=== PATIENT | female | born 1930 | race Caucasian/White ===

== ENCOUNTER 2017-07-13 13:36 | Outpatient (CLI) | payer MEDICARE ==
--- NOTE | 2017-07-13 17:56 | RAD ---
RADIOGRAPH LUMBAR SPINE 2 VIEWS: DATE: 07-13-17 HISTORY: 87-year-old female with lumbar spinal stenosis, and recent low back injury lifting heavy objec t in April 2017. COMPARISON: Two view study of 06-12-17. FINDINGS: There are five lumbar type vertebrae. There is severe loss of height, approximately 75% overall, of the L1 vertebral body, causing gibbus. There is bony retropulsion of the posterior/superior endplate . The collapse is most severe on the right side resulting in focal levoscoliosis with apex of curvat ure at L1. There are asymmetrically severe left sided degenerative facet changes along the concavity of the counter-curvature at L3-4, L4-5, and L5-S1. There is diffuse osteopenia. The rest of the celina tebral body heights are maintained. There is severe degenerative facet disease resulting in grade I anterolisthesis of L4 on L5. Moderate disc space narrowing at L4-5. No interval change overall since the prior study. IMPRESSION: 1. Nonacute burst fracture of L1 with severe loss of height and associated gibbus and levoscoliosis. 2. Grade I spondylolisthesis at L4-5 due to facet osteoarthrosis. 3. Severe osteoporosis/osteopenia. 4. No interval change since 06-12-17 JN POS: [facility]
== END 2017-07-13 13:37 | disposition home or self-care (01) ==
LOC: TBSIIMAG 13:36
PROVIDERS: ATTEND Neurological Surgery
DX: M48.56XA Collapsed vertebra, not elsewhere classified, lumbar region, initial encounter for fracture (principal); M43.16 Spondylolisthesis, lumbar region; M47.816 Spondylosis without myelopathy or radiculopathy, lumbar region
CPT/HCPCS: 72100

== ENCOUNTER 2020-04-18 14:11 | Outpatient (CLI) | payer MEDICARE ==
--- NOTE | 2020-04-18 15:28 | ULT ---
BILATERAL CAROTID DUPLEX ULTRASOUND: HISTORY: Left carotid bruit TECHNIQUE: Grayscale, color-flow and spectral Doppler ultrasound imaging of the extracranial carotid artery syst ems and vertebral arteries was performed bilaterally. FINDINGS: No large amount of echogenic plaque is seen involving the common carotid or internal carotid arteries . The peak systolic velocity in the right ICA measures 71.4 cm/s. The peak systolic velocity in the ri ght CCA measures 71.4 cm/s. The peak systolic velocity in the left ICA measures 89.5 cm/s. The peak systolic velocity in the l eft CCA measures 77.7 cm/s. The right IC/CC ratio is1.0. The left IC/CC ratio is 1.5. Vertebral flow: antegrade, bilaterally. IMPRESSION: No hemodynamically significant stenosis of Both ICAs.
== END 2020-04-18 14:12 | disposition home or self-care (01) ==
LOC: BICULT 14:11
PROVIDERS: ATTEND Family Medicine
DX: R09.89 Other specified symptoms and signs involving the circulatory and respiratory systems (principal)
CPT/HCPCS: 93880

== ENCOUNTER 2020-11-19 15:44 | Emergency (ER) | payer MEDICARE ==
[2020-11-19] MEDS ORDERED: Boostrix 0.5 ML (Tdap) VIAL ONE (16:43)
--- NOTE | 2020-11-19 16:48 | CT ---
CT HEAD WITHOUT IV CONTRAST COMPARISON: 09/11/2020 HISTORY: Injury after fall. Patient slipped and fell and hit head on ground. TECHNIQUE: Axial CT imaging at 5 mm intervals from vertex through skull base without contrast FINDINGS: There is decreased attenuation in the periventricular white matter which is nonspecific but likely re flective of chronic small vessel ischemic changes. There is mild cerebral volume loss. Ventricular system is prominent in size and out of proportion to the degree of sulcal atrophy, but this is likely related to greater central cerebral atrophy. This is stable compared to prior exam and also similar to study in 2016. There is no evidence of an acute infarction, hemorrhage, mass effect, or midline shift. Skull base has a normal CT appearance. Visualized paranasal sinuses are clear. Osseous structures appear intact. No depressed calvarial fracture is seen. There is mild scalp soft t issue swelling right anterior frontal region. IMPRESSION: 1. No acute intracranial abnormality demonstrated. 2. Chronic small vessel ischemic changes and cerebral volume loss. 3. Right anterior frontal scalp hematoma.
--- NOTE | 2020-11-19 17:02 | CT ---
EXAM: CT cervical spine PROVIDED CLINICAL HISTORY: Injury after fall. Patient slipped and fell and hit head on ground. TECHNIQUE: Contiguous axial CT images are obtained through the cervical spine from the skull base to the T1-2 le fran. Sagittal and coronal reformatted images are provided. COMPARISON: 09/11/2020 FINDINGS: There is evidence of a type I odontoid fracture which involves the most distal and posterior aspect o f the odontoid. There is only trace separation of fracture fragments. There is no displacement of the fracture fragments. No additional fracture is seen involving the cervical spine. As noted on the prior examination, there is slight anterolisthesis of C4 on C5 and retrolisthesis of C5 on C6 with trace anterolisthesis of C7 on T1 likely on a degenerative basis. Multilevel degenerative changes are again seen involving the cervical spine with disc osteophyte comp lexes and facet hypertrophic changes at multiple levels unchanged from prior exam. No prevertebral soft tissue swelling apparent. Visualized lung apices appear clear without pneumothorax. No other interval change. IMPRESSION: 1. Nondisplaced but slightly type I odontoid fracture. 2. Above findings discussed with Linda Lunsford NP in the emergency department on 11/19/2020 at [address]
== END 2020-11-19 19:34 | disposition home or self-care (01) ==
LOC: ERS 15:44
DX: S12.112A Nondisplaced Type II dens fracture, initial encounter for closed fracture (principal); S01.81XA Laceration without foreign body of other part of head, initial encounter; S80.01XA Contusion of right knee, initial encounter; S80.212A Abrasion, left knee, initial encounter; S50.311A Abrasion of right elbow, initial encounter; M54.2 Cervicalgia; F03.90 Unspecified dementia, unspecified severity, without behavioral disturbance, psychotic disturbance, mood disturbance, and anxiety; Z23 Encounter for immunization; E03.9 Hypothyroidism, unspecified; Z79.899 Other long term (current) drug therapy; W01.198A Fall on same level from slipping, tripping and stumbling with subsequent striking against other object, initial encounter
CPT/HCPCS: 12011; 70450; 72125; 90471; 90715

== ENCOUNTER 2020-12-29 06:42 | Emergency (ER) | payer MEDICARE ==
[2020-12-29 08:14] LABS: #Eosinphils 0.2 thou/uL (0.0-0.7); #Lymphocytes 2.5 thou/uL (1.20-3.40); #Monocytes 0.7 thou/uL (0.11-0.59); #Neutrophils 5.7 thou/uL (1.40-6.50); %Basophils 0.5 % (0.0-1.0); %Eosinophils 2.2 % (0.0-10.0); %Lymphocytes 27.4 % (21.0-51.0); %Monocytes 7.1 % (0.0-10.0); %Neutrophils 62.7 % (42.0-75.0); Hemoglobin 13.9 g/dL (12.0-16.0); Mean Corpuscular HGB CONC 31.4 g/dL (32.0-36.0); Mean Corpuscular Hemoglobin 32.2 pg (27.0-31.0); Mean Platelet Volume 9.2 fL (7.4-10.4); Platelet Count 135 thou/uL (130-400); White Blood Cell (WBC) Count 9.1 thou/uL (4.8-10.8)
[2020-12-29 08:31] LABS: ALT (SGPT) 7 U/L (8-55); AST (SGOT) 13 U/L (5-34); Albumin 3.3 g/dL (3.4-4.8); Alkaline Phosphatase 81 U/L (40-110); Anion Gap 13 mmol/L (10-20); BUN (Urea Nitrogen) 22 mg/dL (9.8-20.1); Bilirubin, Total 0.4 mg/dL (0.2-1.2); Calc. Creatinine Clearance 0 mL/min (70-130); Calcium 8.8 mg/dL (7.8-10.44); Carbon Dioxide 29 mmol/L (23-31); Chloride 107 mmol/L (98-107); Globulin 2.6 g/dL (2.4-3.5); Glucose 94 mg/dL (83-110); Potassium 4.6 mmol/L (3.5-5.1); Protein, Total 5.9 g/dL (5.8-8.1); Sodium 144 mmol/L (136-145)
[2020-12-29 10:31] LABS: Bacteria/HPF 4+ HPF (None Seen); Bilirubin Negative (Negative); Blood, Urine 1+ (Negative); Clarity Turbid (Clear); Glucose, Urine (Dipstick) Normal (Negative); Ketone, Urine Negative (Negative); Leukocyte 500 Leu/uL (Negative); Nitrite 1+ (Negative); Protein, Urine (Dipstick) 20 mg/dL (Neg-Trace); RBC/HPF 21-50 HPF (0-3); Specific Gravity, Urine 1.009 (1.002-1.036); Squamous Epithelial 0-3 HPF (0-3); Urobilinogen Normal mg/dL (Less than 2); WBC/HPF Greater than 50 HPF (0-3)
[2020-12-29] MEDS ORDERED: cefTRIAXone\\ROCEPHIN 1 GM VIAL ONE (11:36)
== END 2020-12-29 12:27 ==
LOC: ERS 06:42
DX: S00.83XA Contusion of other part of head, initial encounter (principal); M25.551 Pain in right hip; N30.00 Acute cystitis without hematuria; E03.9 Hypothyroidism, unspecified; I50.9 Heart failure, unspecified; F03.90 Unspecified dementia, unspecified severity, without behavioral disturbance, psychotic disturbance, mood disturbance, and anxiety; W01.0XXA Fall on same level from slipping, tripping and stumbling without subsequent striking against object, initial encounter; Y92.129 Unspecified place in nursing home as the place of occurrence of the external cause; R29.6 Repeated falls
CPT/HCPCS: 51701; 70450; 71045; 72125; 72170; 80053; 81003; 81015; 85025; 87077; 87086; 87186; 93005; 96365; J0696

== ENCOUNTER 2021-01-09 18:57 | Emergency (ER) | payer MEDICARE | END 2021-01-09 22:49 | LOC: ERS 18:57 | DX: S00.93XA Contusion of unspecified part of head, initial encounter (principal); E03.9 Hypothyroidism, unspecified; I50.9 Heart failure, unspecified; Z79.899 Other long term (current) drug therapy; W22.8XXA Striking against or struck by other objects, initial encounter | CPT/HCPCS: 70450; 70486; 72125; 72131; 72170 ==

== ENCOUNTER 2021-02-09 13:53 | Inpatient (IN) | payer MEDICARE ==
[2021-02-09 14:54] LABS: Hemoglobin 14.2 g/dL (12.0-16.0); Mean Corpuscular HGB CONC 32.7 g/dL (32.0-36.0); RBC Distribution Width 12.6 % (11.5-14.5); White Blood Cell (WBC) Count 14.3 thou/uL (4.8-10.8)
[2021-02-09 15:14] LABS: ALT (SGPT) 8 U/L (8-55); AST (SGOT) 10 U/L (5-34); Albumin 3.4 g/dL (3.4-4.8); Alkaline Phosphatase 76 U/L (40-110); Anion Gap 13 mmol/L (10-20); BUN (Urea Nitrogen) 24 mg/dL (9.8-20.1); Bilirubin, Total 0.8 mg/dL (0.2-1.2); CK (CPK) 45 U/L (29-168); Calc. Creatinine Clearance 0 mL/min (70-130); Carbon Dioxide 30 mmol/L (23-31); Chloride 101 mmol/L (98-107); Globulin 2.7 g/dL (2.4-3.5); Glucose 120 mg/dL (83-110); Potassium 3.9 mmol/L (3.5-5.1); Protein, Total 6.1 g/dL (5.8-8.1); Sodium 140 mmol/L (136-145)
[2021-02-09 15:18] LABS: Band 15 % (5-11); Lymphocytes 16 % (21-51); MDiff Complete? YES; Mean Platelet Volume 9.2 fL (7.4-10.4); Monocytes 6 % (0-10); Neutrophil 63 % (42-75); Platelet Count 108 thou/uL (130-400)
[2021-02-09] MEDS ORDERED: Cefepime 2 GM VIAL ONE (15:43)
[2021-02-09 15:53] LABS: Bacteria/HPF 4+ HPF (None Seen); Bilirubin Negative (Negative); Blood, Urine Trace (Negative); Clarity Cloudy (Clear); Glucose, Urine (Dipstick) Normal (Negative); Ketone, Urine Negative (Negative); Leukocyte 500 Leu/uL (Negative); Nitrite Negative (Negative); Protein, Urine (Dipstick) 30 mg/dL (Neg-Trace); Specific Gravity, Urine 1.017 (1.002-1.036); Squamous Epithelial 0-3 HPF (0-3); Urobilinogen Normal mg/dL (Less than 2); WBC/HPF Greater than 50 HPF (0-3); pH, Urine 7.5 (5.0-9.0)
[2021-02-09] MEDS ORDERED: Vancomycin 1 GM/200 ML BAG ONE (16:11)
[2021-02-09] MEDS ORDERED: Senokot S 8.6-50 MG TAB PO PRN (17:02)
[2021-02-09] MEDS: Famotidine/PF 20 mg/2ml Vial SLOW IVP SCH ×2 (21:00→21:10)
[2021-02-09] MEDS: traZODone HCl 50 MG TAB PO PRN (21:00)
[2021-02-09 23:56] LABS: SARS-CoV-2 PCR by NAA Not Detected (NotDetected)
[2021-02-10 06:04] LABS: #Basophils 0.1 thou/uL (0.0-0.2); #Eosinphils 0.1 thou/uL (0.0-0.7); #Lymphocytes 2.1 thou/uL (1.20-3.40); #Monocytes 0.9 thou/uL (0.11-0.59); #Neutrophils 10.1 thou/uL (1.40-6.50); %Basophils 0.5 % (0.0-1.0); %Eosinophils 0.4 % (0.0-10.0); %Lymphocytes 15.8 % (21.0-51.0); %Monocytes 6.5 % (0.0-10.0); %Neutrophils 76.8 % (42.0-75.0); Hemoglobin 12.8 g/dL (12.0-16.0); Mean Platelet Volume 9.9 fL (7.4-10.4); Platelet Count 95 thou/uL (130-400); RBC Distribution Width 12.5 % (11.5-14.5); Red Blood Cell (RBC) Count 3.87 mill/uL (4.20-5.40); White Blood Cell (WBC) Count 13.2 thou/uL (4.8-10.8)
[2021-02-10 06:28] LABS: ALT (SGPT) 8 U/L (8-55); AST (SGOT) 14 U/L (5-34); Albumin 2.9 g/dL (3.4-4.8); Alkaline Phosphatase 77 U/L (40-110); Anion Gap 13 mmol/L (10-20); BUN (Urea Nitrogen) 19 mg/dL (9.8-20.1); Bilirubin, Total 0.7 mg/dL (0.2-1.2); Calc. Creatinine Clearance 39 mL/min (70-130); Calcium 8.3 mg/dL (7.8-10.44); Carbon Dioxide 22 mmol/L (23-31); Chloride 105 mmol/L (98-107); Globulin 2.3 g/dL (2.4-3.5); Glucose 99 mg/dL (83-110); Potassium 3.7 mmol/L (3.5-5.1); Protein, Total 5.2 g/dL (5.8-8.1); Sodium 136 mmol/L (136-145)
[2021-02-10] MEDS: Famotidine/PF 20 mg/2ml Vial SLOW IVP SCH (08:11)
[2021-02-10] MEDS: cefTRIAXone\\ROCEPHIN 1 GM in Sodium Chloride 0.9% 100 ML IVPB SCH (08:11)
[2021-02-10] MEDS ORDERED: Enoxaparin Sodium 40 MG/0.4 ML SYRINGE SC SCH (09:00)
[2021-02-10] MEDS: Carvedilol 3.125 MG TAB PO SCH ×2 (09:25→20:41)
[2021-02-10] MEDS: CeleCOXIB 100 MG CAP PO SCH (09:25)
[2021-02-10] MEDS: DULoxetine 30 MG CAP PO SCH ×2 (09:26→20:41)
[2021-02-10] MEDS: Heparin 5,000 UNITS/ML VIAL SC SCH ×2 (09:27→21:42)
[2021-02-10] MEDS: Pantoprazole 40 MG VIAL IVP SCH (09:27)
[2021-02-10] MEDS ORDERED: Vancomycin HCl 750 MG in Sodium Chloride 0.9% 250 ML 250 ML IVPB SCH (16:00)
[2021-02-10 16:51] LABS: #Lymphocytes 1.4 thou/uL (1.20-3.40); #Monocytes 0.3 thou/uL (0.11-0.59); #Neutrophils 10.2 thou/uL (1.40-6.50); %Basophils 0.4 % (0.0-1.0); %Eosinophils 0.1 % (0.0-10.0); %Lymphocytes 11.9 % (21.0-51.0); %Monocytes 2.4 % (0.0-10.0); %Neutrophils 85.2 % (42.0-75.0); Hemoglobin 12.4 g/dL (12.0-16.0); Mean Corpuscular HGB CONC 32.7 g/dL (32.0-36.0); Mean Corpuscular Hemoglobin 32.7 pg (27.0-31.0); Mean Platelet Volume 9.4 fL (7.4-10.4); Platelet Count 94 thou/uL (130-400); RBC Distribution Width 12.5 % (11.5-14.5); White Blood Cell (WBC) Count 11.9 thou/uL (4.8-10.8)
[2021-02-10] MEDS: Sodium Chloride 0.9% 1,000 ML IV SCH (17:30)
[2021-02-10 17:42] LABS: ALT (SGPT) Less than 7 U/L (8-55); AST (SGOT) 11 U/L (5-34); Albumin 2.6 g/dL (3.4-4.8); Alkaline Phosphatase 64 U/L (40-110); Anion Gap 13 mmol/L (10-20); BUN (Urea Nitrogen) 22 mg/dL (9.8-20.1); Bilirubin, Total 0.4 mg/dL (0.2-1.2); Calc. Creatinine Clearance 35 mL/min (70-130); Calcium 8.4 mg/dL (7.8-10.44); Carbon Dioxide 23 mmol/L (23-31); Chloride 106 mmol/L (98-107); Globulin 2.5 g/dL (2.4-3.5); Glucose 123 mg/dL (83-110); Protein, Total 5.1 g/dL (5.8-8.1); Sodium 138 mmol/L (136-145)
[2021-02-10] MEDS: Acetaminophen 325 MG TAB PO PRN (20:47)
[2021-02-11] MEDS: Levothyroxine Sodium 75 MCG TAB PO SCH (05:09)
[2021-02-11] MEDS: Sodium Chloride 0.9% 1,000 ML IV SCH ×2 (05:09→21:28)
[2021-02-11] MEDS: traMADol HCl 50 MG TAB PO PRN (05:27)
[2021-02-11] MEDS: CeleCOXIB 100 MG CAP PO SCH (08:46)
[2021-02-11] MEDS: DULoxetine 30 MG CAP PO SCH ×2 (08:47→21:29)
[2021-02-11] MEDS: Heparin 5,000 UNITS/ML VIAL SC SCH ×3 (08:48→21:57)
[2021-02-11] MEDS: cefTRIAXone\\ROCEPHIN 1 GM in Sodium Chloride 0.9% 100 ML IVPB SCH (08:51)
[2021-02-11] MEDS: Carvedilol 3.125 MG TAB PO SCH ×2 (08:51→21:29)
[2021-02-11] MEDS: Pantoprazole 40 MG VIAL IVP SCH (08:53)
[2021-02-11 15:31] LABS: Vancomycin, Trough 9.5 ug/mL
[2021-02-11] MEDS: Vancomycin 1 GM in Premix Bag 1 BAG IVPB SCH (17:00)
[2021-02-12] MEDS: Levothyroxine Sodium 75 MCG TAB PO SCH (05:28)
[2021-02-12] MEDS: cefTRIAXone\\ROCEPHIN 1 GM in Sodium Chloride 0.9% 100 ML IVPB SCH (08:05)
[2021-02-12] MEDS: Carvedilol 3.125 MG TAB PO SCH ×2 (08:08→20:35)
[2021-02-12] MEDS: CeleCOXIB 100 MG CAP PO SCH (08:08)
[2021-02-12] MEDS: DULoxetine 30 MG CAP PO SCH ×2 (08:09→20:35)
[2021-02-12] MEDS: Heparin 5,000 UNITS/ML VIAL SC SCH ×2 (08:09→20:35)
[2021-02-12] MEDS: Pantoprazole 40 MG VIAL IVP SCH (08:09)
[2021-02-12 10:30] LABS: #Basophils 0.1 thou/uL (0.0-0.2); #Eosinphils 0.1 thou/uL (0.0-0.7); #Lymphocytes 1.8 thou/uL (1.20-3.40); #Monocytes 0.5 thou/uL (0.11-0.59); #Neutrophils 4.3 thou/uL (1.40-6.50); %Basophils 1.2 % (0.0-1.0); %Neutrophils 63.8 % (42.0-75.0); Hemoglobin 11.6 g/dL (12.0-16.0); Mean Corpuscular HGB CONC 32.5 g/dL (32.0-36.0); Mean Corpuscular Hemoglobin 32.5 pg (27.0-31.0); Mean Corpuscular Volume 99.9 fL (78.0-98.0); Mean Platelet Volume 9.7 fL (7.4-10.4); Platelet Count 114 thou/uL (130-400); RBC Distribution Width 12.1 % (11.5-14.5); Red Blood Cell (RBC) Count 3.59 mill/uL (4.20-5.40); White Blood Cell (WBC) Count 6.7 thou/uL (4.8-10.8)
[2021-02-12] MEDS: Sodium Chloride 0.9% 1,000 ML IV SCH ×2 (11:24→20:35)
[2021-02-12] MEDS: Vancomycin 1 GM in Premix Bag 1 BAG IVPB SCH (15:34)
[2021-02-12] MEDS: traZODone HCl 50 MG TAB PO PRN (20:36)
[2021-02-13] MEDS: Levothyroxine Sodium 75 MCG TAB PO SCH (05:25)
[2021-02-13] MEDS: DULoxetine 30 MG CAP PO SCH ×2 (08:02→21:41)
[2021-02-13] MEDS: CeleCOXIB 100 MG CAP PO SCH (08:02)
[2021-02-13] MEDS: Carvedilol 3.125 MG TAB PO SCH ×2 (08:02→21:42)
[2021-02-13] MEDS: Heparin 5,000 UNITS/ML VIAL SC SCH ×2 (08:03→22:09)
[2021-02-13] MEDS: Pantoprazole 40 MG VIAL IVP SCH (08:04)
[2021-02-13 15:28] LABS: Vancomycin, Trough 15.9 ug/mL
[2021-02-13] MEDS: Vancomycin 1 GM in Premix Bag 1 BAG IVPB SCH ×2 (16:56→16:59)
[2021-02-13] MEDS: Sodium Chloride 0.9% 1,000 ML IV SCH (16:57)
[2021-02-13] MEDS: Acetaminophen 325 MG TAB PO PRN (21:41)
[2021-02-13] MEDS: Doxycycline 100 MG CAP PO SCH (21:41)
[2021-02-14] MEDS: Sodium Chloride 0.9% 1,000 ML IV SCH ×2 (01:30→18:27)
[2021-02-14 06:17] LABS: Hemoglobin 11.9 g/dL (12.0-16.0); Mean Corpuscular HGB CONC 32.6 g/dL (32.0-36.0); Mean Platelet Volume 9.1 fL (7.4-10.4); Platelet Count 136 thou/uL (130-400); RBC Distribution Width 12.2 % (11.5-14.5); Red Blood Cell (RBC) Count 3.62 mill/uL (4.20-5.40); White Blood Cell (WBC) Count 4.7 thou/uL (4.8-10.8)
[2021-02-14] MEDS: Levothyroxine Sodium 75 MCG TAB PO SCH (06:36)
[2021-02-14] MEDS: Acetaminophen 325 MG TAB PO PRN (06:36)
[2021-02-14] MEDS: Doxycycline 100 MG CAP PO SCH ×2 (11:28→21:07)
[2021-02-14] MEDS: CeleCOXIB 100 MG CAP PO SCH (11:29)
[2021-02-14] MEDS: DULoxetine 30 MG CAP PO SCH ×2 (11:30→21:07)
[2021-02-14] MEDS: Carvedilol 3.125 MG TAB PO SCH ×2 (11:32→21:06)
[2021-02-14] MEDS: Heparin 5,000 UNITS/ML VIAL SC SCH ×2 (11:32→21:07)
[2021-02-14] MEDS: Pantoprazole 40 MG VIAL IVP SCH (11:33)
[2021-02-15] MEDS ORDERED: ceFAZolin 1 GM/D5W 1 GM in Premix Bag 1 BAG IVPB SCH (02:45)
[2021-02-15] MEDS: Sodium Chloride 0.9% 1,000 ML IV SCH ×2 (05:49→16:51)
[2021-02-15] MEDS: Carvedilol 3.125 MG TAB PO SCH ×2 (05:49→21:41)
[2021-02-15] MEDS: Levothyroxine Sodium 75 MCG TAB PO SCH (05:49)
[2021-02-15] MEDS: Heparin 5,000 UNITS/ML VIAL SC SCH ×2 (08:22→21:41)
[2021-02-15] MEDS: Pantoprazole 40 MG VIAL IVP SCH (08:28)
[2021-02-15] MEDS: Naproxen 500 MG TAB PO SCH ×2 (09:46→21:42)
[2021-02-15] MEDS: Doxycycline 100 MG CAP PO SCH ×2 (09:46→21:41)
[2021-02-15] MEDS: CeleCOXIB 100 MG CAP PO SCH (09:46)
[2021-02-15] MEDS: DULoxetine 30 MG CAP PO SCH ×2 (09:46→21:41)
[2021-02-15] MEDS ORDERED: Sodium Chloride 0.9% 100 ML ONE (11:37)
[2021-02-15] MEDS ORDERED: CEFAZOLIN 1 GM VIAL ONE (11:37)
[2021-02-15] MEDS ORDERED: Bacitracin Zinc Ointment 30 gm TUBE ONE (12:14)
[2021-02-15] MEDS ORDERED: Bupivacaine PF 0.5% 30 ML VIAL ONE ×2 (12:14→12:16)
[2021-02-15] MEDS ORDERED: Thrombin 5000 UNITS/5 ML VIAL ONE (12:14)
[2021-02-15] MEDS ORDERED: Mineral Oil Sterile 10ML 10 ML UDCUP ONE (12:14)
[2021-02-15] MEDS ORDERED: Fentanyl 100 MCG/2 ML VIAL ONE (12:22)
[2021-02-15] MEDS ORDERED: Dexamethasone 4 mg/ml Vial ONE (12:31)
[2021-02-15] MEDS ORDERED: Ondansetron PF 4 MG/2 ML Vial ONE (12:47)
[2021-02-15] MEDS ORDERED: Dexamethasone 20 MG/5 ML VIAL ONE (12:47)
[2021-02-15] MEDS: traMADol HCl 50 MG TAB PO PRN (16:49)
[2021-02-15] MEDS: Acetaminophen 325 MG TAB PO PRN (21:40)
[2021-02-16] MEDS: Sodium Chloride 0.9% 1,000 ML IV SCH (05:30)
[2021-02-16] MEDS: Levothyroxine Sodium 75 MCG TAB PO SCH (05:30)
[2021-02-16] MEDS: CeleCOXIB 100 MG CAP PO SCH (08:47)
[2021-02-16] MEDS: Pantoprazole 40 MG VIAL IVP SCH (08:47)
[2021-02-16] MEDS: Doxycycline 100 MG CAP PO SCH ×2 (08:48→21:44)
[2021-02-16] MEDS: Naproxen 500 MG TAB PO SCH (08:48)
[2021-02-16] MEDS: Carvedilol 3.125 MG TAB PO SCH ×2 (08:48→21:44)
[2021-02-16] MEDS: DULoxetine 30 MG CAP PO SCH ×2 (08:48→21:44)
[2021-02-16] MEDS: Heparin 5,000 UNITS/ML VIAL SC SCH ×2 (08:49→23:11)
[2021-02-16 09:43] LABS: #Lymphocytes 1.8 thou/uL (1.20-3.40); #Monocytes 0.4 thou/uL (0.11-0.59); #Neutrophils 5.2 thou/uL (1.40-6.50); %Basophils 0.6 % (0.0-1.0); %Eosinophils 0.5 % (0.0-10.0); %Lymphocytes 23.9 % (21.0-51.0); %Monocytes 5.1 % (0.0-10.0); %Neutrophils 69.9 % (42.0-75.0); Hemoglobin 12.3 g/dL (12.0-16.0); Mean Corpuscular HGB CONC 32.1 g/dL (32.0-36.0); Mean Corpuscular Hemoglobin 32.5 pg (27.0-31.0); Mean Platelet Volume 9.1 fL (7.4-10.4); Platelet Count 152 thou/uL (130-400); RBC Distribution Width 12.5 % (11.5-14.5); Red Blood Cell (RBC) Count 3.79 mill/uL (4.20-5.40); White Blood Cell (WBC) Count 7.5 thou/uL (4.8-10.8)
[2021-02-16 10:05] LABS: ALT (SGPT) 7 U/L (8-55); AST (SGOT) 12 U/L (5-34); Albumin 2.6 g/dL (3.4-4.8); Alkaline Phosphatase 56 U/L (40-110); Anion Gap 11 mmol/L (10-20); BUN (Urea Nitrogen) 12 mg/dL (9.8-20.1); Bilirubin, Total 0.2 mg/dL (0.2-1.2); Calc. Creatinine Clearance 31 mL/min (70-130); Calcium 8.2 mg/dL (7.8-10.44); Carbon Dioxide 24 mmol/L (23-31); Chloride 110 mmol/L (98-107); Globulin 2.4 g/dL (2.4-3.5); Glucose 120 mg/dL (83-110); Potassium 3.8 mmol/L (3.5-5.1); Sodium 141 mmol/L (136-145)
[2021-02-16] MEDS ORDERED: Lorazepam 2 MG/ML VIAL SLOW IVP SCH ×2 (21:15→21:30)
[2021-02-16] MEDS: traZODone HCl 50 MG TAB PO SCH (21:44)
[2021-02-17] MEDS: Levothyroxine Sodium 75 MCG TAB PO SCH (05:27)
[2021-02-17 07:12] LABS: Anion Gap 10 mmol/L (10-20); BUN (Urea Nitrogen) 14 mg/dL (9.8-20.1); Calc. Creatinine Clearance 34 mL/min (70-130); Calcium 8.2 mg/dL (7.8-10.44); Carbon Dioxide 26 mmol/L (23-31); Chloride 112 mmol/L (98-107); Glucose 84 mg/dL (83-110); Potassium 3.5 mmol/L (3.5-5.1); Sodium 144 mmol/L (136-145)
[2021-02-17] MEDS: Heparin 5,000 UNITS/ML VIAL SC SCH ×2 (12:29→20:26)
[2021-02-17] MEDS: Doxycycline 100 MG CAP PO SCH ×2 (12:30→20:25)
[2021-02-17] MEDS: Carvedilol 3.125 MG TAB PO SCH ×2 (12:30→20:25)
[2021-02-17] MEDS: CeleCOXIB 100 MG CAP PO SCH (12:30)
[2021-02-17] MEDS: DULoxetine 30 MG CAP PO SCH ×2 (12:31→20:25)
[2021-02-17] MEDS: traZODone HCl 50 MG TAB PO SCH (20:25)
[2021-02-18] MEDS: Levothyroxine Sodium 75 MCG TAB PO SCH (05:14)
[2021-02-18] MEDS: Carvedilol 3.125 MG TAB PO SCH (09:36)
[2021-02-18] MEDS: DULoxetine 30 MG CAP PO SCH ×2 (09:36→20:27)
[2021-02-18] MEDS: CeleCOXIB 100 MG CAP PO SCH (09:36)
[2021-02-18] MEDS: Heparin 5,000 UNITS/ML VIAL SC SCH ×2 (09:37→20:27)
[2021-02-18] MEDS: Doxycycline 100 MG CAP PO SCH ×2 (09:39→20:25)
[2021-02-18 12:15] VITALS: BMI 21.7
[2021-02-18] MEDS: hydrALAZINE 20 MG/ML VIAL SLOW IVP PRN (13:22)
[2021-02-18] MEDS: Lorazepam 2 MG/ML VIAL SLOW IVP PRN (15:53)
[2021-02-18] MEDS: Amlodipine 10 MG TAB PO SCH (20:25)
[2021-02-18] MEDS: Carvedilol 6.25 MG TAB PO SCH (20:27)
[2021-02-18] MEDS: traZODone HCl 50 MG TAB PO SCH (20:27)
[2021-02-19] MEDS: Levothyroxine Sodium 75 MCG TAB PO SCH (04:37)
[2021-02-19] MEDS: hydrALAZINE 20 MG/ML VIAL SLOW IVP PRN (06:04)
[2021-02-19] MEDS: Amlodipine 10 MG TAB PO SCH ×2 (08:17→21:41)
[2021-02-19] MEDS: CeleCOXIB 100 MG CAP PO SCH (08:17)
[2021-02-19] MEDS: Carvedilol 6.25 MG TAB PO SCH ×2 (08:17→21:41)
[2021-02-19] MEDS: Doxycycline 100 MG CAP PO SCH ×2 (08:18→21:40)
[2021-02-19] MEDS: DULoxetine 30 MG CAP PO SCH ×2 (08:18→21:40)
[2021-02-19] MEDS: Heparin 5,000 UNITS/ML VIAL SC SCH ×2 (08:18→21:41)
[2021-02-19] MEDS: Acetaminophen 325 MG TAB PO PRN (14:11)
[2021-02-19] MEDS: traMADol HCl 50 MG TAB PO PRN (18:37)
[2021-02-19] MEDS: traZODone HCl 50 MG TAB PO SCH (21:47)
[2021-02-20] MEDS: Lorazepam 2 MG/ML VIAL SLOW IVP PRN (03:27)
[2021-02-20] MEDS: Levothyroxine Sodium 75 MCG TAB PO SCH (06:19)
[2021-02-20] MEDS: CeleCOXIB 100 MG CAP PO SCH (09:38)
[2021-02-20] MEDS: Carvedilol 6.25 MG TAB PO SCH (09:38)
[2021-02-20] MEDS: DULoxetine 30 MG CAP PO SCH (09:39)
[2021-02-20] MEDS: Amlodipine 10 MG TAB PO SCH (09:39)
[2021-02-20] MEDS: Doxycycline 100 MG CAP PO SCH (09:39)
[2021-02-20] MEDS: Heparin 5,000 UNITS/ML VIAL SC SCH (09:41)
[2021-02-20 19:24] VITALS: BP 146/68; TEMP 98.1
== END 2021-02-20 15:58 | disposition home health service (06) | DRG 988 ==
LOC: ERS 13:53 → T4-B 16:18
PROVIDERS: ADMIT Internal Medicine; ATTEND Internal Medicine
PROC: 0LC70ZZ Extirpation of Matter from Right Hand Tendon, Open Approach (ICD-10-PCS; principal; 2021-02-15)
DX: L03.113 Cellulitis of right upper limb (principal); L02.511 Cutaneous abscess of right hand; N39.0 Urinary tract infection, site not specified; F03.91 Unspecified dementia, unspecified severity, with behavioral disturbance; Z66 Do not resuscitate; Z20.822 Contact with and (suspected) exposure to COVID-19; E03.9 Hypothyroidism, unspecified; I10 Essential (primary) hypertension; G47.00 Insomnia, unspecified; B95.62 Methicillin resistant Staphylococcus aureus infection as the cause of diseases classified elsewhere; F32.9 Major depressive disorder, single episode, unspecified; R29.6 Repeated falls; M10.9 Gout, unspecified; H91.90 Unspecified hearing loss, unspecified ear; Z78.1 Physical restraint status; Z79.899 Other long term (current) drug therapy; Z79.890 Hormone replacement therapy
CPT/HCPCS: 36415; 51701; 70450; 76999; 80048; 80053; 80202; 81003; 81015; 82550; 83605; 84443; 84550; 85025; 85027; 87040; 87070; 87077; 87086; 87186; 87205; 96365; 96367; C9113; J0360; J0690; J0692; J0696; J1100; J1644; J2060; J2405; J3010; J3370; J3490; J7050; S0020; S0028; U0003; U0005